=== PATIENT | male | born 1955 | race Caucasian/White ===

== ENCOUNTER → 2023-12-25 | Outpatient (CLI) | payer MEDICARE ==
--- NOTE | 2023-12-29 11:42 | CTL ---
EXAMINATION TYPE: CT Low Dose Lung DATE OF EXAM ORDERED: 12/25/2023 HISTORY: Long-term tobacco use. Lung cancer screening CT DLP: 113.[address] CTDI: 3.1 mGy Automated exposure control for dose reduction was used. SCREENING VISIT: Baseline COMPARISON: None TECHNIQUE: Low dose computed tomography scan was performed through the chest at 1 mm thick sections a nd reconstructed images in multiple planes at 1 mm and [address] DIAGNOSTIC QUALITY: Satisfactory FINDINGS: Nodules: RUL: None. RML: None. RLL: None. JUAN FRANCISCO: None. LLL: None. LUNGS: COPD: Severity: Mild Fibrosis: Severity: Minimal Lymph nodes: None Other findings: None RIGHT PLEURAL SPACE: Effusion: None Calcification: None Thickening: None Pneumothorax: None LEFT PLEURAL SPACE: Effusion: None Calcification: None Thickening: None Pneumothorax: None HEART: Heart Size: Normal Coronary Calcification: Moderate Pericardial Effusion: None OTHER FINDINGS: Upper abdomen: Small size hiatal hernia Bony thorax: Slight scoliotic curvature with mild multilevel spurring Supraclavicular region: None Other: None IMPRESSION: No suspicious pulmonary nodules. CT LUNG RAD AND CT CHEST RECOMMENDATION: Lung-Rad 1 Negative: Continue annual screening with LDCT in 12 months. S Modifier (other clinically significant findings): None
== END | disposition home or self-care (01) ==
LOC: RADCTMAIN 09:17
PROVIDERS: ATTEND Family Medicine
DX: Z12.2 Encounter for screening for malignant neoplasm of respiratory organs (principal); J44.9 Chronic obstructive pulmonary disease, unspecified; F17.210 Nicotine dependence, cigarettes, uncomplicated
CPT/HCPCS: 71271

== ENCOUNTER → 2024-02-11 | Outpatient (CLI) | payer MEDICARE ==
--- NOTE | 2024-02-12 12:43 | CA ---
Exercise Stress Test Report Name: Nishant Lynn Exam Date: 02/11/2024 10:48 Exam Location: [facility] Stress Ht (in): 68 Wt (lb): 180 BSA: 1.95 Ordering Phys: Tony Gómez DO Referring Phys: Snow Koehler Technologist: Kirill Lopez Age: 68 Gender: M : 1955 Procedure CPT: Indications: [id number] family history of ischem heart dis and oth d ICD-10 Codes: Patient History: Medications: BENZAPRIL, PRILOSEC, DEXACYCLINE Meds past 24 hrs: Pretest Chest Pain: STRESS TEST Sourav Protocol Exercise Duration (min:sec): 05:[address] Depressions (mm): Angina Score: Carter Score: Resting HR (bpm): 94 Peak HR (bpm): 133 Resting BP (mmHg): 124 / 76 Peak BP (mmHg): 203 / 83 MPHR: 154 Target HR: 131 % MPHR: 86 METS: 7.1 Total Dose: Peak Dose: Atropine: Double Product: 31683 BP Response: Stress Termination: Reached target heart rate Stress Symptoms: SHORT OF BREATH Stress Summary: ECG ANALYSIS Resting ECG: Stress ECG: CONCLUSIONS Patient underwent exercise stress EKG with a Sourav protocol treadmill stress test. Patient exercised into Stage 2 for a total of 5 minutes and 59 seconds reaching a total of 7.1 METS. Patient's maximum heart rate was 133 which represented 86% age- predicted maximum heart rate. Stress EKG findings: At baseline patient's EKG showed normal sinus rhythm, normal axis, no significant ST or T wave abnormalities. At peak exercise, EKG showed no change from baseline. Conclusions: 1. Normal EKG response to exercise without evidence of inducible ischemia. 2. Fair exercise capacity. Dr. Gumaro Ndiaye DO (Electronically Signed) Final Date: 12 February 2024 12:42
== END | disposition home or self-care (01) ==
LOC: RADNMMAIN 10:25
PROVIDERS: ATTEND Family Medicine
DX: Z82.49 Family history of ischemic heart disease and other diseases of the circulatory system (principal)
CPT/HCPCS: 93017

== ENCOUNTER → 2024-03-15 | Outpatient (CLI) | payer MEDICARE ==
--- NOTE | 2024-04-15 13:24 | CA ---
Transthoracic Echo Report Name: Nishant Lynn Age: 68 Gender: M : 1955 Exam Date: 03/15/2024 11:25 Exam Location: [facility] Echo Ht (in): 68 Wt (lb): 180 Ordering Physician: Attending/Referring Phys: Registered Nurse Supervisor Etta Lopes RDCS Procedure CPT: Indications: Chest pain, unspecified Cardiac Hx: Technical Quality: Fair Contrast 1: Total Dose (mL): Contrast 2: Total Dose (mL): MEASUREMENTS (Male / Female) Normal Values 2D ECHO LV Diastolic Diameter PLAX 5.1 cm 4.2 - 5.9 / 3.9 - 5.3 cm LV Systolic Diameter PLAX 2.9 cm IVS Diastolic Thickness 1.0 cm 0.6 - 1.0 / 0.6 - 0.9 cm LVPW Diastolic Thickness 0.9 cm 0.6 - 1.0 / 0.6 - 0.9 cm LV Relative Wall Thickness 0.4 RV Internal Dim ED PLAX 3.1 cm LA Systolic Diameter LX 3.4 cm 3.0 - 4.0 / 2.7 - 3.8 cm LV Diastolic Volume MOD 4C 94.3 cm??? LV Systolic Volume MOD 4C 48.0 cm??? LV Ejection Fraction MOD 4C 49.1 % LV Diastolic Length 4C 8.3 cm LV Systolic Length 4C 6.9 cm LV Diastolic Volume MOD 2C 96.7 cm??? LV Systolic Volume MOD 2C 54.4 cm??? LV Ejection Fraction MOD 2C 43.7 % LV Diastolic Length 2C 7.9 cm LV Systolic Length 2C 6.7 cm LA Volume 37.2 cm??? 18 - 58 / 22 - 52 cm??? LA Volume Index 18.7 cm???/m??? 16 - 28 cm???/m??? M-MODE Aortic Root Diameter MM 3.9 cm AV Cusp Separation MM 2.0 cm DOPPLER AV Peak Velocity 113.7 cm/s AV Peak Gradient 5.2 mmHg MV Area PHT 2.8 cm??? Mitral E Point Velocity 61.0 cm/s Mitral A Point Velocity 94.5 cm/s Mitral E to A Ratio 0.6 MV Deceleration Time 270.3 ms TR Peak Velocity 225.3 cm/s TR Peak Gradient 20.3 mmHg Right Ventricular Systolic Press 24.6 mmHg FINDINGS Left Ventricle Left ventricular ejection fraction is estimated at 50-55 %. Left ventricular cavity size normal. Left ventricular wall thickness normal. Right Ventricle Normal right ventricular size and function. Right ventricular systolic pressure within normal limits. Right Atrium Normal right atrial size. No right atrial thrombus or mass seen. Left Atrium Normal left atrial size. No left atrial thrombus or mass present. Mitral Valve Mitral valve thickened. Mild mitral annular calcification. Mild mitral regurgitation. Aortic Valve Trileaflet aortic valve. No aortic valve stenosis or regurgitation. Tricuspid Valve Structurally normal tricuspid valve. Mild tricuspid regurgitation. Pulmonic Valve Pulmonic valve not well visualized. Mild pulmonic regurgitation. Pericardium No pericardial effusion. No pleural effusion. Aorta Aortic root is at upper limit of normal with sinuses of valsalva measuring at 39 mm CONCLUSIONS Left ventricular ejection fraction is estimated at 50-55 %. No obvious regional wall motion abnormality Grade 1 diastolic dysfunction Normal RV size and function No significant valvular dysfunction No significant chamber size abnormality Aortic root is at upper limit of normal Previewed by: Dr Phillip Méndez (Electronically Signed) Final Date: 16 March 2024 10:21
== END | disposition home or self-care (01) ==
LOC: RADECHMAIN 10:56
PROVIDERS: ATTEND Family Medicine
DX: I37.1 Nonrheumatic pulmonary valve insufficiency (principal); I36.1 Nonrheumatic tricuspid (valve) insufficiency; I34.81 Nonrheumatic mitral (valve) annulus calcification; I34.0 Nonrheumatic mitral (valve) insufficiency; Z82.49 Family history of ischemic heart disease and other diseases of the circulatory system
CPT/HCPCS: 93306

== ENCOUNTER → 2024-04-20 | Outpatient (CLI) | payer MEDICARE ==
--- NOTE | 2024-04-20 11:09 | CT ---
EXAMINATION TYPE: CT lumbar spine wo con CT DLP: 1070.2 mGycm, Automated exposure control for dose reduction was used. DATE OF EXAM: 04/20/2024 10:51 AM COMPARISON: None. CLINICAL INDICATION:Male, 68 years old with history of M54.16 RADICULOPATHY, LUMBAR REGION; PHH, principal mechanical engineer kirill back pain TECHNIQUE: Multiple axial images were obtained from the midportion of T11 through the sacroiliac chris nts. Soft tissue and bone windows in coronal and sagittal planes were obtained and reviewed. Contrast used: none. Oral contrast used: none. FINDINGS: Alignment: There are 5 lumbar type vertebral bodies. Grade 1 anterolisthesis of L4 on L5 without pars defects. Bone: No evidence of fracture is identified. Degenerative changes of both SI joints with partial fus ion of the left SI joint. Pseudoarticulation of the right L5 transverse process with the sacrum. Discs: Multilevel vacuum disc disease of the lower lumbar spine with disc space narrowing. T12-L1: No spinal canal or neural foraminal stenosis is identified. L1-L2: No spinal canal or neural foraminal stenosis is identified. L2-L3: Broad-based disc bulge resulting in mild central canal stenosis. Bilateral facet arthropathy. Mild to moderate bilateral neural foraminal stenosis. L3-L4: Broad-based disc bulge with ligamentum flavum buckling and bilateral facet arthropathy contrib mitzy to [id number] central canal stenosis. Moderate bilateral neuroforaminal stenosis. L4-L5: Grade 1 anterolisthesis with uncovering of the disc. Broad-based disc bulge with ligamentum fl avum buckling and bilateral facet arthropathy contribute to moderate central canal stenosis. Moderate bilateral neuroforaminal stenosis. L5-S1: Broad-based disc bulge with mild effacement of the anterior thecal sac. Bilateral facet arthro jessica with moderate lateral neural foraminal stenosis. Other: Small hiatal hernia. Exophytic right renal 2.4 cm cyst. Nonobstructive bilateral renal calculi with largest in the left kidney measuring up to 6 mm. Largest in the right kidney measures up to 3 m m. As described calcification of the aorta. Sigmoid diverticulosis. IMPRESSION: 1. No evidence for spinal fracture. 2. Moderate multilevel degenerative disc disease and facet arthropathy described above. Most pronounc ed at L4-L5. 3. Grade 1 anterolisthesis of L4-L5 without pars defect. 4. Nonobstructive bilateral renal calculi. [facility], , 04/20/2024 11:07 AM
== END | disposition home or self-care (01) ==
LOC: RADCTMAIN 10:06
PROVIDERS: ATTEND Family Medicine
DX: M54.16 Radiculopathy, lumbar region
CPT/HCPCS: 72131

== ENCOUNTER → 2024-06-15 | Outpatient (CLI) | payer MEDICARE ==
--- NOTE | 2024-06-15 12:19 | US ---
EXAMINATION TYPE: US prostate transrectal DATE OF EXAM: 06/15/2024 COMPARISON: NONE CLINICAL INDICATION: Male, 68 years old with history of R97.20 ELEVATED PROSTATE SPECIFIC ANTIGEN [PS A]; elevated PSA TECHNIQUE: Grayscale and color Doppler imaging of the prostate gland. This examination was performed using the transrectal probe. EXAM MEASUREMENTS: Gland Size: 5.2x3.9x5.0cm Volume: 52.5 Predicted PSA: 6.3 Actual PSA (if available):8.77 calcifications noted in peripheral zone. prostate appears heterogenous IMPRESSION: 1. No suspicious masses visualized. 2. Note that prostate MRI is a more sensitive exam for the detection of clinically significant prost ate adenocarcinoma. Predicted PSA = volume x 0.12 ng/ml Calculated Volume = 0.5236 x L x W x H [facility], , 06/15/2024 12:16 PM
== END | disposition home or self-care (01) ==
LOC: RADUSWWP 08:57
PROVIDERS: ATTEND Family Medicine
DX: C61 Malignant neoplasm of prostate (principal); R97.20 Elevated prostate specific antigen [PSA]
CPT/HCPCS: 76872